=== PATIENT | female | born 1940 | race Caucasian/White ===

== ENCOUNTER 2016-08-15 07:54 | Observation (INO) | payer OTHER ==
--- NOTE | 2016-08-15 08:25 | PDOC ---
History of Present Illness - General Chief Complaint: Shortness of Breath Stated Complaint: SOB Time Seen by Provider: 08/15/16 08:05 - History of Present Illness Initial Comments: 08/15/16 08:19 76-year-old female with a past medical history of chronic back issues, and osteoarthritis She also has glaucoma Her only medication at this time are Lumigan eyedrops Patient states she had the onset yesterday of lightheadedness and dizziness associated with nausea, which increased throughout the day She also felt mildly short of breath This morning she awakened with some increased shortness of breath, and increased symptoms, and possibly some heaviness in her chest, which she is not sure if this was present yesterday She denies any neck jaw or arm discomfort She denies any palpitations She denies any cough or sputum She denies any fever or chills She denies any leg swelling She denies any recent intercurrent illnesses She is a nonsmoker She denies any cardiac or pulmonary disease history She denies any abdominal pain nausea vomiting or diarrhea She denies any other complaints at this time, and the remainder of the review of systems is negative Past History - Past Medical History Allergies/Adverse Reactions: Allergies Allergy/AdvReac Type Severity Reaction Status Date / Time Penicillins Allergy Verified 06/03/15 17:45 Home Medications: Ambulatory Orders Latanoprost 0.005% Eye Drops [Xalatan 0.005% Eye Drops -] 1 drop OU HS 08/15/16 - Psycho/Social/Smoking Cessation Hx Anxiety: No Suicidal Ideation: No Smoking History: Never smoked Have you smoked in the past 12 months: No Hx Alcohol Use: No Drug/Substance Use Hx: No Substance Use Type: None Review of Systems - Review of Systems Able to Perform ROS?: Yes Comments:: 08/15/16 08:21 12 point review of systems is as per history of present illness and otherwise negative *Physical Exam - Vital Signs Last Vital Signs Temp Pulse Resp BP Pulse Ox 97.4 F L 70 24 174/90 100 08/15/16 08:04 08/15/16 08:04 08/15/16 08:04 08/15/16 08:04 08/15/16 08:04 - Physical Exam Comments: 08/15/16 08:21 Physical exam Last Vital Signs Temp Pulse Resp BP Pulse Ox 97.4 F L 78 24 174/90 100 08/15/16 08:04 08/15/16 08:14 08/15/16 08:04 08/15/16 08:04 08/15/16 08:14 GENERAL: The patient is awake, alert, and fully oriented, and in no apparent distress. HEAD: Normal with no signs of trauma. EYES: extraocular movements intact, sclera anicteric, conjunctiva are normal. ENT: nares patent, oropharynx clear without exudates. Moist mucous membranes. NECK: Normal range of motion, supple LUNGS: Breath sounds equal, clear to auscultation bilaterally. No wheezes, and no crackles. HEART: Regular rate and rhythm, normal S1 and S2 without murmur, rub or gallop. ABDOMEN: Soft, nontender, normoactive bowel sounds. No guarding, no rebound. No masses appreciated. EXTREMITIES: Normal range of motion, no edema. No clubbing or cyanosis. No cords, erythema, or tenderness. No calf tenderness NEUROLOGICAL: There is a very subtle facial asymmetry, uncertain if this is old or new Otherwise completely nonfocal neurologic exam NEURO: Mental status: The patient is oriented x3. Cranial nerves: Cranial nerves II through XII are intact, there is a very subtle facial asymmetry Motor: The upper extremities are 5 over 5 in all muscle groups. The lower extremities are 5 over 5 in all muscle groups. Sensation: Sensation is intact to light touch throughout. Cerebellar: Zpqqih-eicuql-iisl is normal in both upper extremities. Heel-knee- vazquez is normal in both lower extremities. PSYCH: Normal mood, normal affect. SKIN: Warm, Dry, ED Treatment Course - LABORATORY CBC & Chemistry Diagram: 08/15/16 08:47 08/15/16 08:47 - RADIOLOGY Radiology Studies Ordered: Category Date Time Status HEAD CT WITHOUT CONTRAST [CT] Stat CT Scan 08/15/16 08:18 Ordered CHEST X-RAY PORTABLE* [RAD] Stat Radiology 08/15/16 08:18 Ordered Medical Decision Making - Medical Decision Making 08/15/16 08:37 EKG Technically poor study, with baseline artifact There is normal sinus rhythm with a first-degree AV block There is a left axis deviation -16 There is normal QRS duration, and a normal QTC There is poor R wave progression across the anterior precordium There are nonspecific ST-T waves There is no old EKG available for comparison at this time Chest x-ray-NAD 76-year-old female with a negative past medical history, has not seen a primary care M.D. for "a while", presents with lightheadedness and dizziness (not vertigo), associated with some dyspnea, and some substernal chest heaviness Her EKG is nonspecific at this time without acute SC Her chest x-ray is NAD She also has a very subtle facial asymmetry, which may be her baseline, and otherwise a completely nonfocal neurologic exam Will start with a cardiac workup, and also get a CT scan of the head 08/15/16 10:57 Labwork Laboratory Results - last 24 hr 08/15/16 08/15/16 08/15/16 08:47 08:47 08:47 WBC 7.3 RBC 4.38 Hgb 13.9 Hct 41.0 MCV 93.6 MCHC 33.8 RDW 13.3 Plt Count 342 MPV 8.1 D-Dimer 250 H Sodium 139 Potassium 5.3 H Chloride 106 Carbon Dioxide 24 Anion Gap 9 BUN 24 H Creatinine 1.1 H Creat Clearance w eGFR 48.29 Random Glucose 105 Calcium 9.5 Magnesium Total Bilirubin 1.4 H AST 50 H ALT 27 Alkaline Phosphatase 98 Creatine Kinase 127 Troponin I < 0.02 B-Natriuretic Peptide Total Protein 7.4 Albumin 3.7 08/15/16 08:47 WBC RBC Hgb Hct MCV MCHC RDW Plt Count MPV D-Dimer Sodium Potassium Chloride Carbon Dioxide Anion Gap BUN Creatinine Creat Clearance w eGFR Random Glucose Calcium Magnesium 1.9 Total Bilirubin AST ALT Alkaline Phosphatase Creatine Kinase Troponin I B-Natriuretic Peptide 137.30 Total Protein Albumin elevated BUN/creat ratio 08/15/16 10:59 CTA chest No evidence of pulmonary embolism Right basilar atelectasis Calcified mediastinal lymph nodes 08/15/16 11:12 Impression-dyspnea, chest discomfort 08/15/16 12:07 ABG PH 7.58/pCO2 22/pO2 98/bicarb 21/ Resp. alkalosis Hyperventilation without being a response to metabolic acidosis or hypoxemia Unexplained hyperventilation Will check salicylate and TSH (ordered - will be followed by in-pt team) *DC/Admit/Observation/Transfer Diagnosis at time of Disposition: Dyspnea, Chest discomfort, Respiratory alkalosis, Dehydration - Discharge Dispostion Admit: Yes
[2016-08-15 08:59] LABS: MCH 31.6 pg (25.7-33.7); MCHC 33.8 g/dl (32.0-36.0); MEAN CELL VOLUME 93.6 fl (80-96); MEAN PLT VOLUME 8.1 fl (7.5-11.1); PLATELET COUNT 342 K/MM3 (134-434); RDW 13.3 % (11.6-15.6); WHITE BLOOD COUNT 7.3 K/mm3 (4.0-10.0)
[2016-08-15 09:16] LABS: ALBUMIN 3.7 g/dl (3.4-5.0); ANION GAP 9 (8-16); BILIRUBIN,TOTAL 1.4 mg/dL (0.2-1.0); CALCIUM 9.5 mg/dL (8.5-10.1); CO2 24 mmol/L (21-32); CREATININE 1.1 mg/dL (0.55-1.02); GLUCOSE,RANDOM 105 mg/dL (74-106); TOT PROT 7.4 g/dl (6.4-8.2)
[2016-08-15 09:23] LABS: ALK PHOS 98 U/L (45-117); SGPT/ALT 27 U/L (12-78); TROPONIN I < 0.02 ng/ml (0.00-0.05)
[2016-08-15 09:25] LABS: SGOT/AST 50 U/L (15-37)
[2016-08-15 09:27] LABS: MAGNESIUM 1.9 mg/dL (1.8-2.4)
[2016-08-15] MEDS ORDERED: SODIUM CHLORIDE 1,000 ML IV STA (09:31)
[2016-08-15 11:17] LABS: ARTERIAL BLD GAS O2 SATURATION 98.3 % (90-98.9); ARTERIAL BLOOD GAS BASE EXCESS 1.5 meq/l (-2-2); ARTERIAL BLOOD GAS HCO3 21.5 meq/L (22-26)
[2016-08-15 11:18] LABS: ALLENS TEST POSITIVE
[2016-08-15 11:19] LABS: ART PUNCT SITE LEFT RADIAL; LPM/O2% 3; MECH. VENT. NO; PT. ON O2? YES; TYPE OF O2 N/C
[2016-08-15 11:20] LABS: ARTERIAL BLOOD GAS pH 7.58 (7.35-7.45)
[2016-08-15 12:09] LABS: METHEMOGLOBIN 1.3 % (0.4-1.5)
[2016-08-15] MEDS ORDERED: ONDANSETRON 4 MG/2 ML VIAL IVPB ONE (12:19)
[2016-08-15] MEDS ORDERED: ONDANSETRON 4 MG/2 ML VIAL ONE (12:33)
--- NOTE | 2016-08-15 12:58 | HP ---
PCP: None CHIEF COMPLAINT: Dizziness HISTORY OF PRESENT ILLNESS: This is a 76-year-old woman who presented to the ER complaining of dizziness. She says that she started having occasional dizziness with nausea on 08/12. She began vomiting on the night of 08/13. Yesterday, the dizziness became worse and she was not able to go to work. This morning she awoke and got out of bed to use the bathroom. She became dizzy and felt like she was going to pass out. She got back into bed. When she got up again later, she again became dizzy and felt like she was going to pass out. She felt short of breath this morning. She denies chest pain, palpitations, cough, fever, chills, abdominal pain, hematemesis, diarrhea, melena, rectal bleeding. PAST MEDICAL HISTORY Glaucoma Cataracts PAST SURGICAL HISTORY Bilateral cataract surgery Allergies Penicillins Allergy (Verified 06/03/15 17:45) HOME MEDICATIONS 3 Medication Instructions Recorded Bimatoprost [Lumigan] 1 drop IO DAILY 06/03/15 Social History: Smoking: Never smoked Alcohol: Social Drugs: Denies Recent Travel: No Family History: Non-contributory REVIEW OF SYSTEMS CONSTITUTIONAL: Absent: fever, chills, diaphoresis, generalized weakness, malaise, loss of appetite, weight change HEENT: Absent: rhinorrhea, nasal congestion, throat pain, throat swelling, difficulty swallowing, mouth swelling, ear pain, eye pain, visual changes CARDIOVASCULAR: Present: lightheadedness. Absent: chest pain, syncope, palpitations, peripheral edema RESPIRATORY: Present: shortness of breath. Absent: cough, orthopnea, wheezing, stridor, hemoptysis GASTROINTESTINAL: Present: nausea, vomiting. Absent: abdominal pain, abdominal distension, diarrhea, constipation, melena, hematochezia GENITOURINARY: Absent: dysuria, frequency, urgency, hesitancy, hematuria, flank pain MUSCULOSKELETAL: Absent: myalgia, arthralgia, joint swelling, back pain, neck pain SKIN: Absent: rash, itching, pallor HEMATOLOGIC/IMMUNOLOGIC: Absent: easy bleeding, easy bruising, lymphadenopathy, frequent infections ENDOCRINE: Absent: unexplained weight gain, unexplained weight loss, heat intolerance, cold intolerance NEUROLOGIC: Present: dizziness. Absent: headache, focal weakness, paresthesias , unsteady gait, seizure, mental status changes, bladder or bowel incontinence PSYCHIATRIC: Absent: anxiety, depression, suicidal or homicidal ideation, hallucinations. PHYSICAL EXAMINATION Vital Signs - 24 hr 08/15/16 08/15/16 08/15/16 11:20 11:30 12:41 Temperature 98.1 F Pulse Rate 78 Pulse Rate [ 84 76 Left Radial] Respiratory 20 22 Rate Blood Pressure 184/80 182/72 [Left Arm] O2 Sat by Pulse 96 100 98 Oximetry (%) GENERAL: Awake, alert, and fully oriented, in no acute distress. HEAD: Normal with no signs of trauma. EYES: Pupils equal, round and reactive to light, extraocular movements intact, sclera anicteric, conjunctiva clear. No lid lag. EARS, NOSE, THROAT: Ears normal, nares patent, oropharynx clear without exudates. Moist mucous membranes. NECK: Normal range of motion, supple without lymphadenopathy, JVD, or masses. LUNGS: Breath sounds equal, clear to auscultation bilaterally. No wheezes, and no crackles. No accessory muscle use. HEART: Regular rate and rhythm, normal S1 and S2 without murmur, rub or gallop. ABDOMEN: Soft, nontender, not distended, normoactive bowel sounds, no guarding, no rebound, no masses. No hepatomegaly or splenomegaly. MUSCULOSKELETAL: Normal range of motion at all joints. No bony deformities or tenderness. No CVA tenderness. UPPER EXTREMITIES: 2+ pulses, warm, well-perfused. No cyanosis. No clubbing. Cap refill <2 seconds. No peripheral edema. LOWER EXTREMITIES: 2+ pulses, warm, well-perfused. No calf tenderness. No peripheral edema. NEUROLOGICAL: Cranial nerves II-XII intact. Normal speech. Normal gait. PSYCHIATRIC: Cooperative. Good eye contact. Appropriate mood and affect. SKIN: Warm, dry, normal turgor, no rashes or lesions noted. Laboratory Tests 08/15/16 08/15/16 08/15/16 08:18 08:19 08:47 WBC RBC Hgb Hct MCV MCHC RDW Plt Count MPV D-Dimer Anticoagulation Therapy Y Puncture Site Left radial ABG pH 7.58 H ABG pCO2 at Pt Temp 22.8 L ABG pO2 at Pt Temp 94.0 ABG HCO3 21.5 L ABG O2 Sat (Measured) 98.3 ABG O2 Content 19.3 ABG Base Excess 1.5 Chuy Test Positive Carboxyhemoglobin 1.2 Methemoglobin 1.3 O2 Delivery Device N/c Oxygen Flow Rate 3 Vent Mode Y Vent Rate Y Mechanical Rate No PEEP 0.0 Pressure Support Vent Y Sodium 139 Potassium 5.3 H Chloride 106 Carbon Dioxide 24 Anion Gap 9 BUN 24 H Creatinine 1.1 H Creat Clearance w eGFR 48.29 Random Glucose 105 Calcium 9.5 Magnesium Total Bilirubin 1.4 H AST 50 H ALT 27 Alkaline Phosphatase 98 Creatine Kinase 127 Troponin I < 0.02 B-Natriuretic Peptide Total Protein 7.4 Albumin 3.7 08/15/16 08/15/16 08/15/16 08:47 08:47 08:47 WBC 7.3 RBC 4.38 Hgb 13.9 Hct 41.0 MCV 93.6 MCHC 33.8 RDW 13.3 Plt Count 342 MPV 8.1 D-Dimer 250 H Anticoagulation Therapy Puncture Site ABG pH ABG pCO2 at Pt Temp ABG pO2 at Pt Temp ABG HCO3 ABG O2 Sat (Measured) ABG O2 Content ABG Base Excess Chuy Test Carboxyhemoglobin Methemoglobin O2 Delivery Device Oxygen Flow Rate Vent Mode Vent Rate Mechanical Rate PEEP Pressure Support Vent Sodium Potassium Chloride Carbon Dioxide Anion Gap BUN Creatinine Creat Clearance w eGFR Random Glucose Calcium Magnesium 1.9 Total Bilirubin AST ALT Alkaline Phosphatase Creatine Kinase Troponin I B-Natriuretic Peptide 137.30 Total Protein Albumin Chest x-ray: No acute process. Head CT: No acute infarct, hemorrhage, mass. Chest CTA: No PE. Right basilar atelectasis. Calcified mediastinal lymph nodes suspicious for prior granulomatous disease. EKG: Sinus rhythm, rate 71. Septal infarct. ASSESSMENT/PLAN: This is a 76-year-old woman with a history of glaucoma and cataracts who comes to the ER with dizziness, nausea, vomiting and shortness of breath. She was found to have pH 7.58, pCO2 22.8 on ABG, potassium 5.3, BUN 24, creatinine 1.1. She is being placed in observation now for further evaluation of an emergent condition. 1. Acute respiratory alkalosis with dyspnea - Etiology unclear - Possible hyperventilation secondary to anxiety - No evidence of pulmonary embolus - Salicylate level pending 2. Acute kidney injury secondary to dehydration - IV fluid - Monitor BUN, creatinine 3. Dizziness with nausea, vomiting - Possible viral illness - IV fluid - Zofran as needed - Check orthostatic vitals - Echocardiogram - Serial troponins - Carotid dopplers 4. Glaucoma - Continue Lumigan eye drops Visit type - Emergency Visit Emergency Visit: Yes ED Registration Date: 08/15/16 Care time: The patient presented to the Emergency Department on the above date and was hospitalized for further evaluation of their emergent condition. - New Patient This patient is new to me today: Yes Date on this admission: 08/15/16 - Critical Care Critical Care patient: No
[2016-08-15] MEDS ORDERED: ACETAMINOPHEN 325 MG TABLET (FP) PO PRN (13:02)
[2016-08-15] MEDS ORDERED: ONDANSETRON 4 MG/2 ML VIAL IVPB PRN (13:02)
[2016-08-15] MEDS ORDERED: SODIUM CHLORIDE 1,000 ML IV SCH (13:15)
--- NOTE | 2016-08-15 16:05 | EKG ---
Test Reason : Blood Pressure : / mmHG Vent. Rate : 071 BPM Atrial Rate : 070 BPM P-R Int : 000 ms QRS Dur : 056 ms QT Int : 400 ms P-R-T Axes : 000 -16 019 degrees QTc Int : 434 ms POOR DATA QUALITY, INTERPRETATION MAY BE ADVERSELY AFFECTED SINUS RHYTHM SEPTAL INFARCT , AGE UNDETERMINED ABNORMAL ECG NO PREVIOUS ECGS AVAILABLE Confirmed by NANCY LANZA MD ([id number]) on 08/15/2016 4:05:02 PM Referred By: Confirmed By:NANCY LANZA MD
--- NOTE | 2016-08-15 16:27 | CON.CARD ---
Cardiology Consult (text) - Consultation Consultation Note: CC: presyncope/cp 76 yo with h/o chronic back pain, osteoarthritis, glaucoma and morbid obesity presents with presyncope/cp. States that since friday she has had dizziness, nausea/chest discomfort with movement. dizziness described as instability similar to vertigo. sx's assoc with anxiety. able to take po during this time. No prior similar symptoms. sx's gradually improved while here, no specific modifying factor. No orthopnea, pnd, le edema, palps, sob, bleeding, transient neurologic symptoms. Patient denies fever, chills, sweats, dysuria, rash,vomiting, diarrhea, abdominal pain. pmhx/Pshx: per hpi social hx: never smoker fam hx: mother with SD in her 60's. ros: per hpi Ambulatory Orders Bimatoprost [Lumigan] 1 drop IO DAILY 06/03/15 Current Medications Acetaminophen (Tylenol -) 650 mg PO Q4H PRN PRN Reason: FEVER OR PAIN Sodium Chloride (Normal Saline -) 1,000 mls @ 100 mls/hr IV ASDIR SATNAM Latanoprost (Xalatan 0.005% Eye Drops -) 1 drop OU HS SATNAM Ondansetron HCl (Zofran Injection) 4 mg IVPB Q6H PRN PRN Reason: NAUSEA Vital Signs - 24 hr 08/15/16 08/15/16 08/15/16 08:04 08:14 10:25 Temperature 97.4 F L Pulse Rate 70 78 Pulse Rate [ Left Radial] Respiratory 24 Rate Blood Pressure 174/90 170/88 Blood Pressure [Left Arm] O2 Sat by Pulse 100 99 Oximetry (%) 08/15/16 08/15/16 08/15/16 10:50 11:20 11:30 Temperature Pulse Rate 78 78 Pulse Rate [ 84 Left Radial] Respiratory 20 Rate Blood Pressure Blood Pressure 184/80 [Left Arm] O2 Sat by Pulse 99 96 100 Oximetry (%) 08/15/16 08/15/16 08/15/16 12:09 12:41 13:06 Temperature 98.1 F 97.9 F Pulse Rate 84 Pulse Rate [ 84 76 Left Radial] Respiratory 22 20 Rate Blood Pressure 158/69 Blood Pressure 181/72 182/72 [Left Arm] O2 Sat by Pulse 98 Oximetry (%) Intake & Output 08/13/16 08/14/16 08/15/16 08/16/16 07:59 07:59 07:59 07:59 Weight 195 lb 14.422 oz NAD, calm Jvd flat, neck supple ctab nl effort RRR nl s1, s2 no m/r/g + bs soft nt nd ext without e/c/c + dp/pt, no carotid bruits aaox3 no jaundice, diaphoresis CBC, BMP 08/15/16 08:47 08/15/16 08:47 Laboratory Tests 07/10/15 08/15/16 08/15/16 15:20 08:47 08:47 D-Dimer 250 H Magnesium Total Bilirubin 1.4 H AST 50 H ALT 27 Alkaline Phosphatase 98 Creatine Kinase 127 Troponin I < 0.02 C-Reactive Protein 0.4 H B-Natriuretic Peptide Albumin 3.7 08/15/16 08/15/16 08:47 14:00 D-Dimer Magnesium 1.9 Total Bilirubin AST ALT Alkaline Phosphatase Creatine Kinase Troponin I < 0.02 C-Reactive Protein B-Natriuretic Peptide 137.30 Albumin ekg: nsr. anterior q's/poor r wave progression. no ischemic changes tele: nsr echo: nl lv/rv/valves Chest CTA: no pe. r basilar atelectasis, calc l. nodes 76 yo with h/o chronic back pain, osteoarthritis, glaucoma and morbid obesity presents with presyncope/cp. presyncope - sx's most c/w vertigo, consider meclizine if recurs - echo wnl and telemetry wnl thus far - bp elevated on admit, if remains elevated can consider hypertension as etiology - orthostatic vitals, tsh - carotid dopplers, neuro w/u at discretion of pmd cp - atypical sx's. CE's neg x 2. ekg without ischemic changes.
[2016-08-15 19:16] VITALS: BMI 34.5
[2016-08-15] MEDS ORDERED: LATANOPROST 0.005% OPHTH SOLN 2.5ML BOTTLE OU SCH (22:00)
--- NOTE | 2016-08-16 08:19 | PN ---
Physical Exam: SUBJECTIVE: Patient seen and examined. Wants to go home. OBJECTIVE: Vital Signs Period Temp Pulse Resp BP Sys/Navarro Pulse Ox Last 24 Hr 97.7 F-99.2 F 67-84 18-22 132-184/59-80 93-100 GENERAL: The patient is awake, alert, and fully oriented, in no acute distress. HEAD: Normal with no signs of trauma. EYES: PERRL, extraocular movements intact, sclera anicteric, conjunctiva clear. No ptosis. ENT: Ears normal, nares patent, oropharynx clear without exudates, moist mucous membranes. NECK: Trachea midline, full range of motion, supple. LUNGS: Breath sounds equal, clear to auscultation bilaterally, no wheezes, no crackles, no accessory muscle use. HEART: Regular rate and rhythm, S1, S2 without murmur, rub or gallop. ABDOMEN: Soft, nontender, nondistended, normoactive bowel sounds, no guarding, no rebound, no hepatosplenomegaly, no masses. EXTREMITIES: 2+ pulses, warm, well-perfused, no edema. NEUROLOGICAL: Cranial nerves II through XII grossly intact. Normal speech, gait not observed. PSYCH: Normal mood, normal affect. SKIN: Warm, dry, normal turgor, no rashes or lesions noted Laboratory Results - last 24 hr 08/15/16 08/15/16 14:00 21:30 Troponin I < 0.02 < 0.02 Active Medications Generic Name Dose Route Start Last Admin Trade Name Freq PRN Reason Stop Dose Admin Acetaminophen 650 mg 08/15/16 13:02 Tylenol - PO Q4H PRN FEVER OR PAIN Sodium Chloride 1,000 mls @ 100 mls/hr 08/15/16 13:15 08/15/16 21:42 Normal Saline - IV 100 mls/hr ASDIR SATNAM Administration Latanoprost 1 drop 08/15/16 22:00 08/15/16 21:41 Xalatan 0.005% Eye Drops - OU 1 drop HS SATNAM Administration Ondansetron HCl 4 mg 08/15/16 13:02 Zofran Injection IVPB Q6H PRN NAUSEA ASSESSMENT/PLAN:
[2016-08-16 08:23] LABS: MCH 31.2 pg (25.7-33.7); MCHC 33.1 g/dl (32.0-36.0); MEAN CELL VOLUME 94.1 fl (80-96); MEAN PLT VOLUME 8.6 fl (7.5-11.1); PLATELET COUNT 306 K/MM3 (134-434); RDW 13.2 % (11.6-15.6); WHITE BLOOD COUNT 5.6 K/mm3 (4.0-10.0)
[2016-08-16 08:39] LABS: CALCIUM 8.8 mg/dL (8.5-10.1)
[2016-08-16 11:29] VITALS: BP 145/67; TEMP 98.1
[2016-08-16 11:30] VITALS: PULSE 79
--- NOTE | 2016-08-16 11:36 | PN ---
Progress Note (short form) - Note Progress Note: s: no cp sob palps dizzy; wants to go home o: Vital Signs Period Temp Pulse Resp BP Sys/Navarro Pulse Ox Last 24 Hr 97.7 F-99.2 F 67-84 18-22 132-182/59-72 93-98 NAD, calm Jvd flat, neck supple ctab nl effort RRR nl s1, s2 no m/r/g + bs soft nt nd ext without e/c/c aaox3 no jaundice, diaphoresis Current Medications Generic Name Dose Route Start Last Admin Trade Name Freq PRN Reason Stop Dose Admin Acetaminophen 650 mg 08/15/16 13:02 Tylenol - PO Q4H PRN FEVER OR PAIN Sodium Chloride 1,000 mls @ 100 mls/hr 08/15/16 13:15 08/15/16 21:42 Normal Saline - IV 100 mls/hr ASDIR SATNAM Administration Latanoprost 1 drop 08/15/16 22:00 08/15/16 21:41 Xalatan 0.005% Eye Drops - OU 1 drop HS SATNAM Administration Ondansetron HCl 4 mg 08/15/16 13:02 Zofran Injection IVPB Q6H PRN NAUSEA CBC, BMP 08/16/16 06:10 08/16/16 06:10 ekg: nsr. anterior q's/poor r wave progression. no ischemic changes tele: sr echo: nl lv/rv/valves Chest CTA: no pe. r basilar atelectasis, calc l. nodes 76 yo with h/o chronic back pain, osteoarthritis, glaucoma and morbid obesity presents with presyncope/cp. presyncope - now resolved - sx's most c/w vertigo, consider meclizine if recurs - echo wnl and telemetry wnl - trop negx3 - does not appear to be a cardiac etiology of sxs - neuro w/u at discretion of pmd cp - atypical sx's, now says she never had any cp. CE's neg x 3. ekg without ischemic changes. - outpt f/u to monitor sxs cardiac salazar remains stable
--- NOTE | 2016-08-16 18:16 | DS ---
Physical Exam: SUBJECTIVE: Patient seen and examined OBJECTIVE: Vital Signs Period Temp Pulse Resp BP Sys/[place] Pulse Ox Last 24 Hr 97.7 F-99.2 F 67-84 18-20 132-145/59-70 93-98 PHYSICAL EXAM GENERAL: The patient is awake, alert, and fully oriented, in no acute distress. HEAD: Normal with no signs of trauma. EYES: PERRL, extraocular movements intact, sclera anicteric, conjunctiva clear. ENT: Ears normal, nares patent, oropharynx clear without exudates, moist mucous membranes. NECK: Trachea midline, full range of motion, supple. LUNGS: Breath sounds equal, clear to auscultation bilaterally, no wheezes, no crackles, no accessory muscle use. HEART: Regular rate and rhythm, S1, S2 without murmur, rub or gallop. ABDOMEN: Soft, nontender, nondistended, normoactive bowel sounds, no guarding, no rebound, no hepatosplenomegaly, no masses. EXTREMITIES: 2+ pulses, warm, well-perfused, no edema. NEUROLOGICAL: Cranial nerves II through XII grossly intact. Normal speech, gait not observed. PSYCH: Normal mood, normal affect. SKIN: Warm, dry, normal turgor, no rashes or lesions noted. LABS Laboratory Results - last 24 hr 08/15/16 08/16/16 08/16/16 21:30 06:10 06:10 WBC 5.6 RBC 3.92 Hgb 12.2 D Hct 36.9 MCV 94.1 MCHC 33.1 RDW 13.2 Plt Count 306 MPV 8.6 Sodium 144 Potassium 4.5 Chloride 109 H Carbon Dioxide 26 Anion Gap 9 BUN 17 D Creatinine 1.0 Random Glucose 97 Calcium 8.8 Troponin I < 0.02 HOSPITAL COURSE: Date of Admission:08/15/16 Date of Discharge: 08/16/16 Pre hospital course This is a 76-year-old woman who presented to the ER complaining of dizziness. She says that she started having occasional dizziness with nausea on 08/12. She began vomiting on the night of 08/13. Yesterday, the dizziness became worse and she was not able to go to work. This morning she awoke and got out of bed to use the bathroom. She became dizzy and felt like she was going to pass out. She got back into bed. When she got up again later, she again became dizzy and felt like she was going to pass out. She felt short of breath this morning. She denies chest pain, palpitations, cough, fever, chills, abdominal pain, hematemesis, diarrhea, melena, rectal bleeding. ED course She was found to have pH 7.58, pCO2 22.8 on ABG, potassium 5.3, BUN 24, creatinine 1.1. Hospital course by problem list Acute respiratory alkalosis with dyspnea - Etiology unclear, likely hyperventilation secondary to anxiety - CTA negative for PE - self-limiting, satted 98% on room air 2. Acute kidney injury secondary to dehydration - resolved with IV fluid, Cr 1.0 3. 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 Glaucoma - Continue Lumigan eye drops Signed out AMA Patient was advised of all test results including carotid artery findings. Told her we were waiting for neurologist to evaluate her. She said she could not wait as she has a cat at home with no one to care for it. Advised patient we could not rule out the possibility that she had or is at risk for having a cerebrovascular event such as a stroke or TIA and that such an event could be disabling or lead to . Advised her we could start her on medications such as an aspirin or a statin once our evaluation was complete. Patient insisted she had to go home prior to the completion of the evaluation. She signed out AMA. Minutes to complete discharge: 35 Discharge Summary Reason For Visit: DYSPNEA,CHEST DISCOMFORT Condition: Guarded - Instructions Disposition: AGAINST MEDICAL ADVICE - Home Medications Comprehensive Discharge Medication List: Ambulatory Orders Latanoprost 0.005% Eye Drops [Xalatan 0.005% Eye Drops -] 1 drop OU HS 08/15/16 This patient is new to me today: Yes Date on this admission: 08/16/16 Emergency Visit: Yes ED Registration Date: 08/15/16 Care time: The patient presented to the Emergency Department on the above date and was hospitalized for further evaluation of their emergent condition. Critical Care patient: No - Discharge Referral Referred to [facility] No
== END 2016-08-16 13:11 | disposition left against medical advice (07) ==
LOC: JER 07:54 → JERBED 11:18 → J4W 13:07
PROVIDERS: ADMIT Internal Medicine; ATTEND Nurse Practitioner Acute Care
DX: N17.9 Acute kidney failure, unspecified (principal); E86.0 Dehydration; E87.3 Alkalosis; H40.89 Other specified glaucoma; M54.89 Other dorsalgia; R42 Dizziness and giddiness; R11.2 Nausea with vomiting, unspecified; E66.8 Other obesity; Z68.34 Body mass index [BMI] 34.0-34.9, adult; Z71.3 Dietary counseling and surveillance; R55 Syncope and collapse
CPT/HCPCS: 36415; 36600; 70450-TC; 71010-TC; 71275-TC; 80048; 80053; 82375; 82550; 82803; 83050; 83735; 83880; 84484; 85027; 85379; 93005; 93010; 93306-TC; 93880-TC; 99285-25; G0378